=== PATIENT | male | born 1995 | race Caucasian/White ===

== ENCOUNTER 2020-06-15 18:41 | Emergency (ER) | payer OTHER, MEDICAID, SELFPAY ==
[2020-06-15] VITALS (7 sets, daily range): BP systolic 140–175; BP diastolic 79–90; PULSE 80–104; RESP 18; TEMP 36.6; O2SAT 98–100; BMI 31.2
--- NOTE | 2020-06-15 19:40 | ED.ABDPAIN ---
HPI - Abdominal Pain General Chief Complaint: Nausea/Vomiting/Diarrhea Stated Complaint: STOMACH HURTING THROWING UP BLOOD Time Seen by Provider: 06/15/20 18:58 Source: patient Mode of arrival: Ambulatory Limitations: no limitations History of Present Illness HPI narrative: 24M nonsmoker, nondrinker without history of blood thinners, liver disease or alcohol abuse presents with a chief complaint of some epigastric discomfort over the course of the day and a few episodes of nausea and vomiting. He states that the most recent episode looked like there was likely some blood in it and he questions whether not he may have cut his ?food to ?when eating a tortilla chip earlier today. He currently does not have any pain. He is not dizzy nor weak or lightheaded. He is having no chest pain or shortness of breath. He denies recent travel, change in diet or new medications. He is resting comfortably. MD complaint: abdominal pain Onset (ago): hour(s) Pain Consistency: intermittent and now resolved Location: epigastric Severity: mild Quality: cramping Radiation: none Relieving factors: nothing Exacerbating factors: nothing Associated symptoms: nausea and vomiting Related Data Previous Rx's Medication Instructions Recorded pantoprazole [Protonix] 40 mg PO DAILY #30 tab 06/15/20 Allergies Allergy/AdvReac Type Severity Reaction Status Date / Time No Known Drug Allergies Allergy Verified 06/15/20 20:55 Review of Systems Constitutional Constitutional: Denies chills, Denies fatigue, Denies fever(s), Denies frequent falls, Denies lethargy and Denies weakness Eyes Eyes: Denies change in vision, Denies eye discharge, Denies irritation and Denies loss of vision ENT Ears, Nose, Mouth, and Throat: Denies change in voice, Denies dizziness, Denies neck pain, Denies sore throat and Denies throat swelling Cardiovascular Cardiovascular: Denies chest pain, Denies irregular heart rhythm, Denies lightheadedness, Denies palpitations, Denies dyspnea, Denies dyspnea on exertion and Denies orthopnea Respiratory Respiratory: Denies cough, Denies dyspnea, Denies dyspnea on exertion and Denies wheezing Gastrointestinal Gastrointestinal: Reports abdominal pain, Denies change in bowel habits, Denies diarrhea, Reports nausea and Reports vomiting Musculoskeletal Musculoskeletal: Denies neck pain and Denies numbness Integumentary/Breasts Skin/Breast: Denies pruritus, Denies erythema, Denies rash and Denies wounds Neurologic Neurologic: Denies behavioral changes, Denies confusion, Denies dizziness, Denies frequent falls, Denies loss of vision, Denies numbness and Denies weakness Psychiatric Psychiatric: Denies anxiety, Denies behavioral changes, Denies confusion, Denies depression, Denies homicidal ideation and Denies suicidal ideation Endocrine Endocrine: Denies fatigue, Denies flushing and Denies palpitations Hematologic/Lymphatic Hematologic/Lymphatic: Denies easy bruising Allergic/Immunologic Allergic/Immunologic: Denies urticaria, Denies throat swelling and Denies wheezing Patient History Social History Smoking Status: Former smoker Smoking Status: Never smoker alcohol intake frequency: 0-2 drinks per day Substance Use Type: does not use Exam Narrative Exam Narrative: GENERAL: [] 24 year old patient appears stated age. Well-nourished, well-developed patient, in mild distress. HEAD: Atraumatic. Normocephalic. EYES: Pupils equal round and reactive. Extraocular motions intact. No scleral icterus. No injection or drainage. ENT: Nose without bleeding, purulent drainage. Throat without erythema, tonsillar hypertrophy or exudate. Airway patent. NECK: Trachea midline. Non tender CARDIOVASCULAR: Regular rate and rhythm without murmurs, gallops, or rubs. RESPIRATORY: Clear to auscultation. Breath sounds equal bilaterally. No wheezes, rales, or rhonchi. GASTROINTESTINAL: Abdomen soft, non-tender, nondistended. EXTREMITIES: No edema or joint tenderness. BACK: Nontender without deformity or crepitance. No flank tenderness. NEURO: AOx3. SKIN: No rash or erythema of visible areas Initial Vital Signs Initial Vital Signs: Vital Signs Temperature 98 F 06/15/20 20:05 Pulse Rate 98 H 06/15/20 20:05 Respiratory Rate 18 06/15/20 20:05 Blood Pressure 175/90 H 06/15/20 20:05 Pulse Oximetry 100 06/15/20 20:05 Course Course Course Narrative: [place] Bleeding Score (GBS) from [employer] on 06/16/2020 All calculations should be rechecked by clinician prior to use RESULT SUMMARY: 0 points A GBS of 0 is a ?Low Risk? GI bleed, and is highly sensitive (99.6% in a 2007 retrospective study) for predicting which patients did not require any ?medical intervention?: blood transfusion, endoscopy, or surgery. This [facility] where patients with a score of 0 were actually discharged and had no GI bleeding mortality at 6 month followup INPUTS: Hemoglobin ?> 15.5 g/dL BUN ?> 15 mg/dL Initial systolic BP ?> 140 mm Hg Sex ?> 0 = Male Heart rate ?100 ?> 0 = No Melena present ?> 0 = No Recent syncope ?> 0 = No Hepatic disease history ?> 0 = No Cardiac failure present ?> 0 = No Orders Ordered: ED Orders 06/15/20 21:02 Basic Metabolic Panel Stat Complete Blood Count AUTO DIFF Stat Prothrombin Time INR Stat Discontinued Medications Ondansetron HCl (Ondansetron 4 Mg Odt) 4 mg PO NOW ONE Stop: 06/15/20 20:53 Last Admin: 06/15/20 20:55 Dose: 4 mg Documented by: WILMA Vital Signs Vital signs: Vital Signs - 8 hr 06/15/20 22:00 06/15/20 22:30 06/15/20 22:45 Pulse Rate 87 85 80 Respiratory Rate 18 Blood Pressure 140/79 Pulse Oximetry 98 98 99 MDM - Abdominal Pain Lab Data Result diagrams: 06/15/20 21:02 06/15/20 21:02 Labs: Lab Results 06/15/20 06/15/20 06/15/20 Range/Units 21:02 21:02 21:02 WBC 8.3 (4.5-11.0) X10^3/uL RBC 4.90 (4.5-5.9) X10^6/uL Hgb 15.5 (13.5-17.5) g/dL Hct 44.9 (41-53) % MCV 91.8 (80-100) fL MCH 31.7 (26-34) PG MCHC 34.6 (30-36) % RDW 13.3 (11.6-14.8) % Plt Count 265 (150-400) X10^3/uL Neut % (Auto) 59.2 (50-75) % Lymph % (Auto) 31.0 (25-40) % Wallace % (Auto) 8.2 (3-14) % Eos % (Auto) 1.2 L (2-4) % Baso % (Auto) 0.4 (0-2) % Neut # (Auto) 4900 (5623-8220) /uL Lymph # (Auto) 2600 (2978-1870) /uL Wallace # (Auto) 700 (0-900) /uL Eos # (Auto) 100 (0-450) /uL Baso # (Auto) 0 (0-100) /uL PT 11.3 (10.1-12.7) SECONDS INR 1.0 (0.9-1.3) Sodium 140 (137-145) mmol/L Potassium 4.1 (3.4-5.1) mmol/L Chloride 105 (98-107) mmol/L Carbon Dioxide 26 (22-32) mmol/L BUN 15 (9-20) mg/dL Creatinine 0.81 (0.66-1.25) mg/dL Estimated GFR > 60.0 (>60) mL/min BUN/Creatinine Ratio 18.5 (6-22) Glucose 103 H (70-100) mg/dL Calcium 9.6 (8.4-10.2) mg/dL MDM Narrative Medical decision making narrative: Patient with an episode or 2 of what sounds like minimal bright red blood in emesis is hemodynamically stable, stable H&H, no high risk elements to his medical history. Observed, tolerating oral hydration, given return precautions and has had questions answered to his apparent satisfaction. Discharge Plan Departure Patient Disposition: Home Clinical Impression: Acute vomiting Instructions: DI for Vomiting -- Adult Activity Restrictions/Additional Instructions: *You have been diagnosed with [abdominal pain, questionable blood in emesis] *What to do: *Take medications as directed *Follow up with your primary care provider in 2-3 days, call for an appointment. Let them know you were seen in the Emergency Department and that we ask that you be seen in follow up *Return to ER if you should have any new, worsening or concerning symptoms, such as [fever greater than 101, persistent pain, dizziness, lightheadedness, persistent vomiting, coffee-ground appearance to emesis or other bothersome symptoms] Prescriptions: New pantoprazole [Protonix] 40 mg tablet,delayed release (DR/EC) 40 mg PO DAILY Qty: 30 RF: 0 Referrals: [facility] [Outside] Hari Suero MD [Physician] - Stand Alone Forms: Work Release Note
[2020-06-15] MEDS: ONDANSETRON 4 MG ODT PO (20:55)
--- NOTE | 2020-06-15 20:56 | DI.RAD.S_ITS ---
PROCEDURE: XR ACUTE ABDOMEN SERIES INDICATIONS: Abdominal pain TECHNIQUE: One view chest and two views of the abdomen were acquired. COMPARISON: None. FINDINGS: Surgical changes and devices: None. Chest: Lungs are clear. Heart size is normal. No pleural effusions. No pneumoperitoneum. Abdomen: Moderate stool. No specific transition point. Bones: No suspicious bony lesions. IMPRESSION: Moderate stool. No specific evidence of bowel obstruction seen at this time although if the patient's symptoms do not improve, continued surveillance with abdominal series radiographs could be performed. Dictated by: Jaya Damian M.D. on 06/15/2020 at 22:03 Approved by: Jaya Damian M.D. on 06/15/2020 at 22:04
[2020-06-15 21:08] LABS: Add Manual Diff / Slide Review NO; Basophils Absolute Auto 0 /uL (0-100); Basophils Percent Auto 0.4 % (0-2); Eosinophils Absolute Auto 100 /uL (0-450); Eosinophils Percent Auto 1.2 % (2-4); Hematocrit 44.9 % (41-53); Hemoglobin 15.5 g/dL (13.5-17.5); Lymphocytes Absolute Auto 2600 /uL (1100-4500); Mean Corpuscular HGB Conc 34.6 % (30-36); Mean Corpuscular Hemoglobin 31.7 PG (26-34); Mean Corpuscular Volume 91.8 fL (80-100); Monocytes Absolute Auto 700 /uL (0-900); Monocytes Percent Auto 8.2 % (3-14); Neutrophils Absolute Auto 4900 /uL (1500-7000); Neutrophils Percent Auto 59.2 % (50-75); Platelet Count 265 X10^3/uL (150-400); Red Cell Distribution Width 13.3 % (11.6-14.8); White Blood Cell Count 8.3 X10^3/uL (4.5-11.0)
[2020-06-15 21:17] LABS: Prothrombin Time 11.3 SECONDS (10.1-12.7)
[2020-06-15 21:21] LABS: BUN Creatinine Ratio 18.5 (6-22); Blood Urea Nitrogen 15 mg/dL (9-20); Calcium 9.6 mg/dL (8.4-10.2); Carbon Dioxide 26 mmol/L (22-32); Chloride 105 mmol/L (98-107); Estimated Glomerular Filt Rate > 60.0 mL/min (>60); Glucose 103 mg/dL (70-100); HEMOLYSIS < 15 (0-50); Potassium 4.1 mmol/L (3.4-5.1); Sodium 140 mmol/L (137-145)
== END 2020-06-15 22:45 | disposition home or self-care (01) ==
PROVIDERS: Emergency Provider Emergency Medicine
DX: R11.2 Nausea with vomiting, unspecified (principal); R10.13 Epigastric pain
CPT/HCPCS: 36415; 74022; 80048; 85025; 85610; 99284

== ENCOUNTER 2020-06-23 11:59 | Emergency (ER) | payer OTHER, MEDICAID, SELFPAY ==
[2020-06-23 12:03] VITALS: BP 142/83; PULSE 78; RESP 18; TEMP 36.6; O2SAT 99; BMI 32.0
== END 2020-06-23 14:24 | disposition left against medical advice (07) ==
PROVIDERS: Emergency Provider Emergency Medicine
CPT/HCPCS: 99281